=== PATIENT | male | born 1940 | race Caucasian/White ===

== ENCOUNTER 2021-04-20 15:22 | Emergency (ER) | payer MEDICARE, OTHER, SELFPAY ==
[2021-04-20 15:28] VITALS: BP 142/67; PULSE 67; RESP 18; TEMP 36.9; O2SAT 98
--- NOTE | 2021-04-20 15:34 | DI.US.S_ITS ---
PROCEDURE: US PERIPH VENOUS LOW EXTREM RT INDICATIONS: RULE OUT DEEP VEIN THROMBOSIS TECHNIQUE: Real-time imaging, as well as color and pulse Doppler interrogation, were performed of the lower extremity deep veins from the inguinal ligament to the popliteal fossa. COMPARISON: None. FINDINGS: The common femoral, femoral and popliteal veins are normally compressible, and free of intraluminal thrombus. Color and pulse Doppler demonstrate normal phasic intraluminal flow. There is normal augmentation response to distal compression maneuver. There are partially occlusive filling defects in the greater saphenous vein. There is soft tissue edema in the right calf/ankle. IMPRESSION: 1. No DVT in the right lower extremity. 2. Partial occlusive filling defect in the greater saphenous vein consistent with superficial thrombophlebitis. 3. Soft tissue edema in calf and ankle. Dictated by: Praveen Thorne M.D. on 04/20/2021 at 16:42 Approved by: Praveen Thorne M.D. on 04/20/2021 at 16:48
--- NOTE | 2021-04-20 17:44 | ED_ITS ---
HPI - Extremity Injury (Lower) General Chief Complaint: Extremity Injury, Lower Stated Complaint: vascular issue in right leg Time Seen by Provider: 04/20/21 17:44 Source: patient Mode of arrival: Ambulatory History of Present Illness HPI Narrative: 63-year-old gentleman with a history of hypertension hyperlipidemia on baby aspirin 81 mg presents with irritation to the outer aspect of the right anterior clark that is been getting increasingly tender over the last 3-4 days. He has not had any specific trauma to that area however he and his have been on a motor home drip for the last 7 weeks of her has been quite a bit of sitting. He wants to be reassured that he does not have a DVT. Review of Systems Review of Systems Narrative: Pertinent positive and negative findings as per HPI Remainder of review of systems is otherwise unremarkable for Constitutional: Fevers, chills, weakness ENT: No sore throat, neck pain, ear pain CV: Chest pain, palpitations, Respiratory: Cough, wheeze, dyspnea GI: Nausea, vomiting, diarrhea, : Dysuria, hematuria, Patient History Social History Smoking Status: Current every day smoker Smoking Status: Current every day smoker alcohol intake frequency: 0-2 drinks per day Exam Narrative Exam Narrative: General: Alert appropriate in no acute distress Respiratory: Able to speak in full sentences, no obvious respiratory distress Skin: No obvious rashes, warm and dry Neurologic: Grossly intact no obvious asymmetries or abnormalities Psych: appropriate insight and affect, cooperative Initial Vital Signs Initial Vital Signs: Vital Signs Temperature 98.4 F 04/20/21 15:28 Pulse Rate 67 04/20/21 15:28 Respiratory Rate 18 04/20/21 15:28 Blood Pressure 142/67 H 04/20/21 15:28 Pulse Oximetry 98 04/20/21 15:28 Course Orders Ordered: ED Orders 04/20/21 15:34 US periph venous low extrem rt Stat Vital Signs Vital signs: Vital Signs - 8 hr 04/20/21 15:28 Temperature 98.4 F Pulse Rate 67 Respiratory Rate 18 Blood Pressure 142/67 H Pulse Oximetry 98 MDM - Extremity Injury (Lower) Medical Records Attestation: I reviewed the patient's medical records. Imaging Data us leg: Radiologist's Impression: IMPRESSION: 1. No DVT in the right lower extremity. 2. Partial occlusive filling defect in the greater saphenous vein consistent with superficial thrombophlebitis. 3. Soft tissue edema in calf and ankle. Dictated by: Praveen Thorne M.D. on 04/20/2021 at 16:42 MDM Narrative Medical decision making narrative: 80-year-old gentleman with an episode of superficial thrombophlebitis without any evidence of cellulitis or DVT. Reassurance is given along with anticipatory guidance. He is safe for home d ischarge Discharge Plan Departure Patient Disposition: Home Clinical Impression: Superficial thrombophlebitis Qualifiers: Superficial thrombophlebitis-Involved body area: lower extremity Laterality: right Qualified Code(s): I80.01 - Phlebitis and thrombophlebitis of superficial vessels of right lower extremity Instructions: DI for Superficial Thrombophlebitis Activity Restrictions/Additional Instructions: Thank you for coming in today This is a superficial blood clot. It is not putting you at risk for deeper blood clots or blood clots going to your lungs. It does hurt but it will get better. I would encourage that you make sure that you are getting up and moving around frequently as you [place] in [place] home Use the Madhu wrap as a compression option to help with pain control. Tylenol and ibuprofen can also be helpful. Please continue the baby aspirin a day. I wish you the best
--- NOTE | 2021-04-20 18:23 | PC.NURSE ---
ASSESSED BY MD WITHOUT RN INVOLVEMENT
== END 2021-04-20 18:38 | disposition home or self-care (01) ==
PROVIDERS: Emergency Provider Emergency Medicine
DX: I80.01 Phlebitis and thrombophlebitis of superficial vessels of right lower extremity (principal)
CPT/HCPCS: 93971; 99283